=== PATIENT | female | born 1950 | race Caucasian/White ===

== ENCOUNTER → 2017-02-28 14:01 | Outpatient (CLI) | payer MEDICARE, MEDICAID | END | disposition home or self-care (01) | LOC: D.CT 14:01 | DX: M54.5 Low back pain (principal) ==

== ENCOUNTER 2017-05-29 10:01 | Outpatient (CLI) | payer MEDICARE, MEDICAID ==
[~2017-05-29] VITALS: Ht 165.1 cm; Wt 81.8 kg
[2017-05-29 10:55] VITALS: BP 142/88; Ht 165.1 cm; Wt 81.8 kg
== END 2017-05-29 11:20 ==
LOC: D.OPS 10:01
DX: M81.0 Age-related osteoporosis without current pathological fracture (principal)

== ENCOUNTER → 2019-02-05 12:29 | Outpatient (CLI) | payer MEDICARE, MEDICAID | END | disposition home or self-care (01) | LOC: D.OPS 12:29 | DX: M18.0 Bilateral primary osteoarthritis of first carpometacarpal joints (principal) ==

== ENCOUNTER → 2019-03-19 15:16 | Outpatient (CLI) | payer MEDICARE, MEDICAID ==
[2019-02-05 14:12] VITALS: BMI 25.1
== END | disposition home or self-care (01) ==
LOC: D.RAD 12:52
PROVIDERS: ATTEND Pain Medicine Interventional Pain Medicine
DX: M25.572 Pain in left ankle and joints of left foot (principal); M25.571 Pain in right ankle and joints of right foot; M25.562 Pain in left knee

== ENCOUNTER → 2019-05-27 14:21 | Outpatient (CLI) | payer MEDICARE, MEDICAID ==
[2019-02-05 14:12] VITALS: BMI 25.1
== END | disposition home or self-care (01) ==
LOC: D.RT 14:21
PROVIDERS: ATTEND Emergency Medicine
DX: J43.8 Other emphysema (principal)

== ENCOUNTER 2019-08-27 13:12 | Outpatient (CLI) | payer MEDICARE, MEDICAID ==
[~2019-08-27] VITALS: Ht 165.1 cm; Wt 72.7 kg
[2019-08-27 13:49] VITALS: BP 124/80; Ht 165.1 cm; Wt 72.7 kg
== END 2019-08-27 14:02 | disposition home or self-care (01) ==
LOC: D.OPS 13:12
PROVIDERS: ATTEND Emergency Medicine
DX: M81.0 Age-related osteoporosis without current pathological fracture (principal)

== ENCOUNTER 2020-03-17 11:39 | Outpatient (CLI) | payer MEDICARE, MEDICAID ==
[~2020-03-17] VITALS: Ht 162.6 cm; Wt 72.7 kg
[2020-03-17 12:27] VITALS: BP 119/74; Ht 162.6 cm; Wt 72.7 kg
== END 2020-03-17 12:34 | disposition home or self-care (01) ==
LOC: D.OPS 11:39
PROVIDERS: ATTEND Emergency Medicine
DX: M81.0 Age-related osteoporosis without current pathological fracture (principal)